=== PATIENT | female | born 1960 | race Hispanic/Latino ===

== ENCOUNTER 2023-03-02 12:58 | Emergency (ER) | payer BC ==
[2023-03-02] MEDS ORDERED: MECLIZINE HCL 12.5 MG TAB ONE (13:41)
--- NOTE | 2023-03-02 13:47 | RAD REPORT ---
EXAM DESCRIPTION: CT - Head Brain Wo Cont - 03/02/2023 1:28 pm CLINICAL HISTORY: vertigo COMPARISON: No comparisons TECHNIQUE: All CT scans are performed using dose optimization technique as appropriate and may inclu de automated exposure control or mA/KV adjustment according to patient size. FINDINGS: No intracranial hemorrhage, hydrocephalus or extra-axial fluid collection.No areas of brai n edema or evidence of midline shift. The paranasal sinuses and mastoids are clear. The calvarium is intact. IMPRESSION: No acute intracranial abnormality.
[2023-03-02 13:49] LABS: Absolute Lymphocytes (CBC) 1.1 K/uL (0.7-4.9); Hematocrit 41.8 % (36.0-45.0); Lymphocytes % 20.3 % (15.3-44.8); MCV 89.4 fL (80-100); MPV 7.9 fL (7.6-11.3); RBC Red Blood Cell Count 4.67 M/uL (3.86-4.86)
[2023-03-02 14:07] LABS: Albumin 4.1 g/dL (3.4-5.0); Bilirubin Total 0.5 mg/dL (0.2-1.0); Potassium 3.7 mEq/L (3.5-5.1); Protein, Total 7.6 g/dL (6.4-8.2); Troponin High Sensitivity 3.6 pg/mL (<58.9)
--- NOTE | 2023-03-02 14:30 | EDPHYS ---
Physician Documentation [facility] Name: Loan Gonzalez Age: 62 yrs Sex: Female : 1960 Arrival Date: 03/02/2023 Time: 12:58 Bed 5 Private MD: ED Physician Roger Shelton HPI: 03/02 15:45 This 62 yrs old Female presents to ER via Ambulatory with complaints of rt Vertigo. 15:45 Patient presents to the ED with vertigo. Patient states that she woke up this morning rt with the symptoms. They are waxing and waning. They are worse when she stands up and turns her head. The patient has reported nausea without vomiting. Denies chest pain, other acute complaints. Symptoms are moderate in severity, no other aggravating or alleviating factors.. Historical: - Allergies: 13:13 Codeine; ld1 13:13 Bactrim; ld1 13:13 Amoxicillin; ld1 - PMHx: 13:13 Rheumatoid arthritis; ld1 - PSHx: 13:13 None; ld1 - Immunization history:: Adult Immunizations up to date, Client reports receiving the 2nd dose of the Covid vaccine. - Social history:: Smoking status: Patient denies any tobacco usage or history of. Patient/guardian denies using alcohol. - Family history:: not pertinent. ROS: 15:45 Constitutional: Negative for fever, chills, and weight loss, Cardiovascular: Negative rt for chest pain, palpitations, and edema, Respiratory: Negative for shortness of breath, cough, wheezing, and pleuritic chest pain, MS/Extremity: Negative for injury and deformity, Skin: Negative for injury, rash, and discoloration, Psych: Negative for depression, anxiety, suicide ideation, homicidal ideation, and hallucinations. 15:45 Abdomen/GI: Positive for nausea, Negative for abdominal pain. 15:45 Neuro: Positive for dizziness, weakness. Exam: 15:45 Eyes: extraocular muscles intact, no visual field deficits, 2-3 beats of right going rt nystagmus, head impulse and test of skew negative. 15:45 ENT: Cerumen in bilateral EACs, partially visualized tympanic membrane reveals no effusion. 15:45 Neuro: Renal nerves II through XII intact, speech normal, strength and sensation intact in upper and lower extremities. 15:47 Constitutional: This is a well developed, well nourished patient who is awake, alert, rt and in no acute distress. Head/Face: Normocephalic, atraumatic. Chest/axilla: Normal chest wall appearance and motion. Nontender with no deformity. No lesions are appreciated. Cardiovascular: Regular rate and rhythm with a normal S1 and S2. No gallops, murmurs, or rubs. Normal PMI, no JVD. No pulse deficits. Respiratory: Lungs have equal breath sounds bilaterally, clear to auscultation and percussion. No rales, rhonchi or wheezes noted. No increased work of breathing, no retractions or nasal flaring. Skin: Warm, dry with normal turgor. Normal color with no rashes, no lesions, and no evidence of cellulitis. MS/ Extremity: Pulses equal, no cyanosis. Neurovascular intact. Full, normal range of motion. Psych: Awake, alert, with orientation to person, place and time. Behavior, mood, and affect are within normal limits. 15:49 ECG was reviewed by the Attending Physician. rt Vital Signs: 13:13 BP 148 / 83; Pulse 75; Resp 20; Temp 98.3(O); Pulse Ox 100% on R/A; Weight 52.16 kg; ld1 Height 5 ft. 2 in. ; Pain 0/10; 14:22 BP 165 / 80; Pulse 62; Resp 16; Pulse Ox 99% on R/A; db 15:00 BP 142 / 75; Pulse 65; Resp 16; Pulse Ox 100% on R/A; db 13:13 Body Mass Index 21.03 (52.16 kg, 157.48 cm) ld1 13:13 Pain Scale: Adult ld1 MDM: 13:08 Patient medically screened. rt 15:48 Differential diagnosis: CVA, Mnire's disease, benign positional vertigo. Data rt reviewed: vital signs, nurses notes, lab test result(s), EKG, radiologic studies. Consideration of Admission/Observation Escalation of care including admission/observation considered. With physical exam findings not consistent with a central vertigo, negative CT scan, negative labs. Patient with complete resolution of symptoms with meclizine, this does favor a benign process. Discussed with patient that CVA is not 100% excluded but less likely. Patient is comfortable discharge, return precautions discussed.. I considered the following discharge prescriptions or medication management in the emergency department Medications were administered in the Emergency Department. See MAR. Care significantly affected by the following chronic conditions: RA. Counseling: I had a detailed discussion with the patient and/or guardian regarding: the historical points, exam findings, and any diagnostic results supporting the discharge/admit diagnosis, lab results, radiology results, the need for outpatient follow up. 03/02 13:17 Order name: CBC with Diff; Complete Time: 14:01 rt 03/02 13:17 Order name: CMP; Complete Time: 14:17 rt 03/02 13:17 Order name: Troponin High Sensitivity; Complete Time: 14:17 rt 03/02 13:17 Order name: CT Head Brain wo Cont; Complete Time: 13:50 rt 03/02 13:17 Order name: EKG; Complete Time: 13:20 rt 03/02 13:17 Order name: EKG - Nurse/Tech; Complete Time: 13:37 rt EC:49 Rate is 66 beats/min. Rhythm is regular, Normal Sinus Rhythm with No ectopy. QRS [place] rt is Normal. OR interval is normal. QRS interval is normal. QT interval is normal. No Q waves. T waves are Normal. No ST changes noted. Interpreted by me. Administered Medications: 13:37 Drug: Meclizine PO 50 mg Route: PO; ph 14:48 Follow up: Response: No adverse reaction db Disposition Summary: 03/02/23 14:29 Discharge Ordered Location: Home rt Problem: new rt Symptoms: are resolved rt Condition: Stable rt Diagnosis - Benign paroxysmal vertigo rt Followup: rt - With: Private Physician - When: 2 - 3 days - Reason: Discharge Instructions: - Discharge Summary Sheet rt - Benign Positional Vertigo rt Forms: - Medication Reconciliation Form rt - Thank You Letter rt - Antibiotic Education rt - Prescription Opioid Use rt Prescriptions: - Meclizine 25 mg Oral Tablet - take 1 tablet by ORAL route every 8 hours As needed; 30 tablet; Refills: 0, rt Product Selection Permitted Signatures: Dispatcher [employer] Tyra Jacobs RN RN ph Brittany Torres RN RN ld1 Roger Shelton MD MD rt Nadja Licona RN db
--- NOTE | 2023-03-02 14:30 | ER ---
Nurse's Notes [facility] Name: Loan Gonzalez Age: 62 yrs Sex: Female : 1960 Arrival Date: 03/02/2023 Time: 12:58 Bed 5 Private MD: Diagnosis: Benign paroxysmal vertigo Presentation: 03/02 13:13 Chief complaint: Patient states: Vertigo, dizziness, nausea, weakness since this ld1 morning. Coronavirus screen: At this time, the client does not indicate any symptoms associated with coronavirus-19. Ebola Screen: No symptoms or risks identified at this time. Initial Sepsis Screen: Does the patient meet any 2 criteria? No. Patient's initial sepsis screen is negative. Does the patient have a suspected source of infection? No. Patient's initial sepsis screen is negative. Risk Assessment: Do you want to hurt yourself or someone else? Patient reports no desire to harm self or others. Onset of symptoms was March 02, 2023 at 13:13. 13:13 Method Of Arrival: Ambulatory ld1 13:13 Acuity: TANG 3 ld1 Triage Assessment: 13:13 General: Appears in no apparent distress. comfortable, Behavior is calm, cooperative, ld1 appropriate for age. Pain: Denies pain. EENT: No signs and/or symptoms were reported regarding the EENT system. Neuro: Level of Consciousness is awake, alert, obeys commands, Oriented to person, place, time, situation, Appropriate for age. Cardiovascular: Capillary refill < 3 seconds Patient's skin is warm and dry. Rhythm is sinus rhythm. Respiratory: Airway is patent Respiratory effort is even, unlabored. GI: Abdomen is round non-distended. : No signs and/or symptoms were reported regarding the genitourinary system. Derm: No signs and/or symptoms reported regarding the dermatologic system. Musculoskeletal: No signs and/or symptoms reported regarding the musculoskeletal system. Historical: - Allergies: 13:13 Codeine; ld1 13:13 Bactrim; ld1 13:13 Amoxicillin; ld1 - PMHx: 13:13 Rheumatoid arthritis; ld1 - PSHx: 13:13 None; ld1 - Immunization history:: Adult Immunizations up to date, Client reports receiving the 2nd dose of the Covid vaccine. - Social history:: Smoking status: Patient denies any tobacco usage or history of. Patient/guardian denies using alcohol. - Family history:: not pertinent. Screenin:34 [facility] ED Fall Risk Assessment (Adult) History of falling in the last 3 months, db including since admission No falls in past 3 months (0 pts) Confusion or Disorientation No (0 pts) Intoxicated or Sedated No (0 pts) Impaired Gait No (0 pts) Mobility Assist Device Used No (0 pt) Altered Elimination No (0 pt) Score/Fall Risk Level 0 - 2 = Low Risk Oriented to surroundings, Maintained a safe environment. Abuse screen: Denies threats or abuse. Denies injuries from another. Nutritional screening: No deficits noted. Tuberculosis screening: No symptoms or risk factors identified. Assessment: 13:00 Reassessment: Patient appears in no apparent distress at this time. Patient and/or db family updated on plan of care and expected duration. Pain level reassessed. Patient is alert, oriented x 3, equal unlabored respirations, skin warm/dry/pink. Reassessment: dizziness. Pain: Denies pain. Neuro: Level of Consciousness is awake, alert, obeys commands, Oriented to person, place, time, Reports dizziness. 14:32 Reassessment: patient ambulatory with steady gate. Denies dizziness with ambulation db notified Dr. Shelton. 15:17 Reassessment: Patient appears in no apparent distress at this time. Patient and/or db family updated on plan of care and expected duration. Pain level reassessed. Patient is alert, oriented x 3, equal unlabored respirations, skin warm/dry/pink. Patient states feeling better. Patient states symptoms have improved. Vital Signs: 13:13 BP 148 / 83; Pulse 75; Resp 20; Temp 98.3(O); Pulse Ox 100% on R/A; Weight 52.16 kg; ld1 Height 5 ft. 2 in. ; Pain 0/10; 14:22 BP 165 / 80; Pulse 62; Resp 16; Pulse Ox 99% on R/A; db 15:00 BP 142 / 75; Pulse 65; Resp 16; Pulse Ox 100% on R/A; db 13:13 Body Mass Index 21.03 (52.16 kg, 157.48 cm) ld1 13:13 Pain Scale: Adult ld1 ED Course: 12:59 Patient arrived in ED. rg4 13:01 Roger Shelton MD is Attending Physician. rt 13:13 Triage completed. ld1 13:13 Arm band placed on right wrist. ld1 13:23 Tyra Zimmerman, RN is Primary Nurse. ph 13:29 CT Head Brain wo Cont In Process Unspecified. EDMS 13:40 Inserted saline lock: 20 gauge in right antecubital area, using aseptic technique. db Blood collected. 14:34 Allergy band placed. Bed in low position. Call light in reach. Side rails up X 1. Pulse db ox on. NIBP on. 15:00 No provider procedures requiring assistance completed. IV discontinued, intact, db bleeding controlled, No redness/swelling at site. Administered Medications: 13:37 Drug: Meclizine PO 50 mg Route: PO; ph 14:48 Follow up: Response: No adverse reaction db Medication: 15:00 VIS not applicable for this client. db Outcome: 14:29 Discharge ordered by . rt 15:00 Discharged to home ambulatory, with family. db 15:00 Condition: good 15:00 Discharge instructions given to patient, Instructed on discharge instructions, follow up and referral plans. Demonstrated understanding of instructions, follow-up care, Prescriptions given X 1. 15:17 Patient left the ED. db Signatures: Dispatcher [employer] EDKY Tyra Zimmerman, RN RN ph America Guillen rg4 Brittany Torres RN RN ld1 Nadja Licona RN RN db Roger Shelton MD MD rt
[2023-03-02 15:41] VITALS: TEMP 98.3
[2023-03-02 15:46] VITALS: BP 142/75; O2SAT 100
--- NOTE | 2023-03-03 05:35 | EKG ---
Test Date: 2023-03-02 Test Time: 13:39:38 Community Health Worker: TAWANNA MEASUREMENT RESULTS: Intervals: Rate: 66 TN: 146 QRSD: 84 QT: 410 QTc: 429 Debary: P: 48 TN: 146 QRS: 21 T: 43 INTERPRETIVE STATEMENTS: Normal sinus rhythm Normal ECG No previous ECG available for comparison Electronically Signed On 03-03-23 05:33:06 CDT by Kenyon Osborn
== END 2023-03-02 15:17 | disposition home or self-care (01) ==
LOC: ER 12:58
DX: H81.10 Benign paroxysmal vertigo, unspecified ear (principal); Z88.1 Allergy status to other antibiotic agents; Z88.5 Allergy status to narcotic agent
CPT/HCPCS: 93005; 85025; 36415; 84484; 80053; 70450; 99284; J8597